=== PATIENT | female | born 2000 | race Caucasian/White ===

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

== ENCOUNTER → 2020-04-30 05:05 | Observation (INO) ==
[~2020-04-30 05:05] MED LIST changes: +Famotidine 20 MG/2 ML VIAL IVP ONE; -Famotidine 20 MG/2 ML VIAL IVP PRN; -Mag Hydrox/Al Hydrox/Simeth 30 ML UDC PO ONE; -Metoclopramide 10 MG/2 ML VIAL IVP PRN; +NIFEdipine 10 MG CAPSULE PO ONE; -Naloxone 0.4 MG/ML INJ IVP PRN; -Ondansetron 4 MG/2 ML VIAL IVP PRN; +Ringers Solution, Lactated 1,000 ML IVC SCH; -Ringers Solution, Lactated 1,000 ML ONE; +Ringers Solution, Lactated 500 ML IVC ONE
== END | disposition left against medical advice (07) ==
LOC: 1NENULAB
PROVIDERS: ADMIT Obstetrics & Gynecology; ATTEND Obstetrics & Gynecology